=== PATIENT | female | born 1970 | race Caucasian/White ===

== ENCOUNTER 2018-05-18 22:31 | Emergency (ER) | payer OTHER ==
[~2018-05-18] VITALS: Ht 152.4 cm; Wt 49.9 kg
[2018-05-18] MEDS ORDERED: ZYRTEC10 M5 (22:43)
[2018-05-18 23:01] LABS: ABSOLUTE BASOPHILS 0.1 thou/uL (0.0-0.2); ABSOLUTE EOSINOPHILS 0.1 thou/uL (0.0-0.7); ABSOLUTE LYMPHOCYTES 1.6 thou/uL (0.8-5.3); ABSOLUTE MONOCYTES 0.6 thou/uL (0.0-1.2); ABSOLUTE NEUTROPHILS 10.5 thou/uL (1.6-8.1); BASOPHILS 0.5 %; HEMATOCRIT 44.2 % (37.0-47.0); HEMOGLOBIN 15.1 gm/dL (12.0-15.0); LYMPHOCYTES 12.6 %; MCH 31.3 pg (26.0-34.0); MCHC 34.2 g/dL (28.0-37.0); MCV 91.7 fL (80.0-100.0); MONOCYTES 4.6 %; MPV 8.3 fl. (7.2-11.1); NUCLEATED RBCS 0 /100WBC; PLATELET COUNT* 292 thou/uL (150-400); POLYS 81.3 %; RBC 4.82 mil/uL (4.20-5.00); RDW-CV 13.1 % (10.5-14.5); WBC 12.9 thou/uL (4.0-11.0)
[2018-05-18 23:08] LABS: CREATININE 0.9 mg/dL (0.6-1.3); POTASSIUM 3.5 mmol/L (3.5-5.1)
[2018-05-18 23:11] LABS: URINE BILIRUBIN NEGATIVE (Negative); URINE BLOOD NEGATIVE (Negative); URINE CLARITY CLEAR; URINE COLOR YELLOW; URINE GLUCOSE-RANDOM NEGATIVE (Negative); URINE KETONES TRACE (Negative); URINE LEUKOCYTES-REFLEX NEGATIVE (Negative); URINE NITRITE-REFLEX NEGATIVE (Negative); URINE PROTEIN NEGATIVE (Negative); URINE UROBILINOGEN 0.2 E.U./dl (0.2-1.0)
[2018-05-18 23:12] LABS: ALBUMIN 4.1 g/dL (3.4-5.0); TOTAL BILIRUBIN 0.2 mg/dL (<0.1-1.0); TOTAL PROTEIN 7.6 g/dL (6.4-8.2)
[2018-05-19] MEDS ORDERED: BACLOFEN5 MG PO (01:51)
[2018-05-19] MEDS ORDERED: FLEXERIL PO (01:51)
[2018-05-19] MEDS ORDERED: NORCO 5-325 TA1 EACH PO (01:51)
[2018-05-19 02:06] VITALS: BP 111/66
== END 2018-05-19 02:07 | disposition home or self-care (01) ==
LOC: M.ERS 22:31
PROVIDERS: Emergency Medicine
DX: M54.2 Cervicalgia (principal); R51 Headache